=== PATIENT | male | born 1960 | race Caucasian/White ===

== ENCOUNTER 2021-08-18 10:41 | Day surgery (SDC) | payer OTHER ==
[~2021-08-18] VITALS: Ht 182.9 cm; Wt 89.7 kg
[~2021-08-18 10:41] MED LIST: ATORVASTATIN CA10 MG PO; Aspir 8181 MG PO; Cartia Xt180 MG PO
--- NOTE | 2021-08-18 11:44 | NUR ---
08/18/21 1144 GIORGIO VÁZQUEZ HIGH FIBER/DIVERTICULOSIS TO PT IN POSTOP PER .
== END 2021-08-18 12:27 | disposition home or self-care (01) ==
LOC: ORSCSDS 10:41
PROVIDERS: Internal Medicine Gastroenterology
PROC: 0DBM8ZX Excision of Descending Colon, Via Natural or Artificial Opening Endoscopic, Diagnostic (ICD-10-PCS; principal; 2021-08-18 12:00)
PROC: 0DBL8ZX Excision of Transverse Colon, Via Natural or Artificial Opening Endoscopic, Diagnostic (ICD-10-PCS; principal; 2021-08-18 12:00)
PROC: 0DBN8ZX Excision of Sigmoid Colon, Via Natural or Artificial Opening Endoscopic, Diagnostic (ICD-10-PCS; principal; 2021-08-18 12:00)
DX: Z12.11 Encounter for screening for malignant neoplasm of colon (principal); Z86.010 Personal history of colon polyps; D12.3 Benign neoplasm of transverse colon; D12.4 Benign neoplasm of descending colon; D12.5 Benign neoplasm of sigmoid colon; K57.30 Diverticulosis of large intestine without perforation or abscess without bleeding; K64.8 Other hemorrhoids; I10 Essential (primary) hypertension; I48.91 Unspecified atrial fibrillation; G47.33 Obstructive sleep apnea (adult) (pediatric); Z79.899 Other long term (current) drug therapy
CPT/HCPCS: 88305; J2704; J7120

== ENCOUNTER → 2022-06-08 | Outpatient (CLI) | payer OTHER ==
[2022-06-12 13:10] LABS: M-SPIKE, % 81.4 % (Not Observed); M-SPIKE, MG/24 HR 1289 mg/24 hr (Not Observed); PROTEIN,TOTAL,URINE 175.9 mg/dL (Not Estab.)
== END | disposition home or self-care (01) ==
LOC: LAB SHORT 10:49
PROVIDERS: Internal Medicine Hematology & Oncology
DX: C93.10 Chronic myelomonocytic leukemia not having achieved remission (principal); C90.00 Multiple myeloma not having achieved remission
CPT/HCPCS: 81050

== ENCOUNTER → 2022-07-26 | Outpatient (CLI) | payer OTHER | END | disposition home or self-care (01) | LOC: LAB SHORT 12:06 → LAB 12:06 | DX: D22.5 Melanocytic nevi of trunk (principal) | CPT/HCPCS: 88305 ==

== ENCOUNTER 2022-08-15 02:27 | Day surgery (SDC) | payer OTHER ==
[2022-08-15] MEDS ORDERED: DECADRON4 M1 PO (17:41)
[2022-08-15] MEDS ORDERED: VALS80 PO (17:41)
[2022-08-15] MEDS ORDERED: VITAMIN D31000 UNI1 PO (17:42)
[2022-08-15] MEDS ORDERED: METO100ER PO (17:42)
[2022-08-15] MEDS ORDERED: ACYC400 PO (17:43)
--- NOTE | 2022-08-15 17:45 | NUR ---
TRANSFUSION REACTION PLATLETS STARTED AT 1358. NO HISTORY OF ANY BLOOD PRODUCT TRANSFUSION. 1442: PT CALLED STAFF TO ROOM. C/O ITCHING, RASH, HIVE TO INNER LEFT LOWER LIP. PLATLETS STOPPED. VS: 97.8 - 16 - 71 - 127/105 1445: CALLED DR. TORRES'S OFFICE, SPOKE WITH ESHA Tavarez MA. NEW ORDERS RECEIVED FOR BENEDRYL. 1447: BENEDRYL 25 MG IV GIVEN X1 PT MONITORED. 1455: PT REPORTS SYMPTOMS RESOLVED. HIVE TO INNER LEFT LOWER LIP NEARLY GONE. RESTARTED PLATLET INFUSION. 1508: PT C/O ITCHING IN THROAT, COUGH, C/O "COLD" NO TEMP. PLATLETS STOPPED. 1510: BENEDRYL 25 MG IV X 1 GIVEN. 1517: PT REPORTS SYMPTOMS PERSISTING. VS: 98.0 - 16 - 84 - 120/88. 1520: CALL TO DR. TORRES'S OFFICE. SPOKE WITH Keysha NUNEZ. NEW ORDERS RECEIVED FOR IV SOLUMEDROL. 1527: PT REPORTS FEELING SOME RELIEF FROM THE BENEDRYL. SOLUMEDROL 125 MG IV GIVEN. 1540: PT REPORTS HE IS FEELING MUCH BETTER. TRANSFUSION REACTION REPORT STARTED. 1548: LABS DRAWN FROM [facility] FOR LAB TO RUN TESTING POST TRANSFUSION REACTION. 1552: VS: 98.2 - 16 - 79 - 114/81. PT REPORTS FEELING BETTER 1617: VS: 97.6 - 16 - 75 - 144/93. REPORTS HE FEELS FINE. TRANSFUSION REACTION EDUCATION GIVEN. PT REPORTS HE FEELS FINE TO DRIVE. AMB WITH STEADY GAIT TO BR. PT REPORTS HE HAS BENEDRYL AT HOME AND HIS WILL BE HOME AND CAN HELP MONITOR HIM. DISCUSSED WHEN TO CALL 911 IF REACTINO RETURNS. 1624: IV DC'D AND PT AMB WITH STEADY GAIT TO GO HOME.
== END 2022-08-15 16:24 | disposition home or self-care (01) ==
LOC: ATC 02:27 → LAB FUT 08-06 13:40 → EDSTATUS 08-06 13:40
DX: D69.6 Thrombocytopenia, unspecified (principal); C93.10 Chronic myelomonocytic leukemia not having achieved remission; C90.00 Multiple myeloma not having achieved remission; I48.0 Paroxysmal atrial fibrillation; Z87.891 Personal history of nicotine dependence
CPT/HCPCS: 36415; 36430; 86900; 86901; 96374; 96375; 96376; J1200; J2930; J7040; P9035

== ENCOUNTER 2023-02-07 16:49 | Inpatient (IN) | payer OTHER ==
[~2023-02-07] VITALS: Ht 180.3 cm; Wt 89.5 kg
[~2023-02-07 16:49] MED LIST changes: +ACYC400 PO; +DECADRON4 M1 PO; +METO100ER PO; +VALS80 PO; +VITAMIN D31000 UNI1 PO
[2023-02-07 17:39] LABS: Hematocrit 29.8 % (37.0-53.0); Hemoglobin 9.9 g/dL (13.5-17.5); Mean Corpuscular HGB 30.8 pg (26.0-34.0); Mean Corpuscular HGB Conc 33.2 g/dL (31.5-36.5); Mean Corpuscular Volume 93 fL (80-100); Mean Platelet Volume 10.5 fL (9.1-12.4); Platelet Count 527 K/mm3 (150-400); RDW Coefficient Variation 16.4 % (11.7-14.2); RDW Standard Deviation 54.9 fL (35.1-46.3); Red Blood Cell Count 3.21 M/mm3 (4.30-5.90); White Blood Cell Count 1.05 K/mm3 (4.00-11.30)
[2023-02-07 17:58] LABS: Source, Urine Clean Catch
[2023-02-07 18:03] LABS: Albumin, Blood 2.8 g/dL (3.4-5.0); Albumin/Globulin Ratio 0.8 (0.8-1.8); Bilirubin, Total 1.1 mg/dL (0.1-1.0); Bun/Creatinine Ratio 11.2 (12.0-20.0); Calcium, Blood 8.8 mg/dL (8.5-10.1); Creatinine, Blood 1.25 mg/dL (0.60-1.20); Globulin, Blood 3.6 g/dL (2.2-4.0); Total Protein, Blood 6.4 g/dL (6.4-8.2)
[2023-02-07 18:43] LABS: BASOPHILS PERCENT MAN 0 % (0-2); EOSINOPHILS ABSOLUTE MAN 0.01 K/mm3 (0.00-0.68); EOSINOPHILS PERCENT MAN 1 % (0-6); LYMPHOCYTES % ATYPICAL MANUAL 1 % (0-0); LYMPHOCYTES ABSOLUTE MAN 0.79 K/mm3 (0.84-5.20); LYMPHOCYTES PERCENT MAN 75 % (21-46); MONOCYTES ABSOLUTE MAN 0.03 K/mm3 (0.16-1.47); MONOCYTES PERCENT MAN 3 % (4-13); NEUTROPHILS ABSOLUTE MAN 0.21 K/mm3 (1.96-9.15); SEG NEUTROPHILS PERCENT MAN 20 % (41-73); TOTAL CELLS COUNTED 100
[2023-02-07 18:44] LABS: Appearance, Urine Clear (Clear); Bilirubin, Urine Neg (Neg); Blood, Urine Neg (Neg); Color, Urine Yellow (P-Yellow); Glucose Qualitative, Urine Neg (Neg); Ketones, Urine Neg (Neg); Leukocyte Esterase, Urine Neg (Neg); Nitrite, Urine Neg (Neg); Protein, Urine 2+ (Neg); Specific Gravity, Urine 1.015 (1.003-1.022); Urobilinogen, Urine NORM (Normal)
[2023-02-07 18:52] LABS: Bacteria Few /hpf; Mucus Light (0-Heavy); Red Blood Cells, Urine 0-2 /hpf (0-2); Squamous Epithelial Cells Rare /hpf (Few); White Blood Cells, Urine 0-2 /hpf (0-5)
[2023-02-07 20:39] LABS: Influenza A, PCR NEGATIVE (NEGATIVE); Influenza B, PCR NEGATIVE (NEGATIVE); Resp Syncytial Virus, PCR NEGATIVE (NEGATIVE); SARS-Cov-2 (COVID-19) PCR, MMC NEGATIVE (NEGATIVE)
[2023-02-08] MEDS ORDERED: INQOVI 35 MG-11 EACH PO (00:56)
[2023-02-08 01:06] VITALS: BP 127/84
[2023-02-08 03:55] VITALS: BP 130/80
[2023-02-08 04:19] LABS: Campylobacter Sp Not Detected (NOT DETECT)
[2023-02-08 04:20] LABS: Adenovirus F 40/41 Not Detected (NOT DETECT); Astrovirus Not Detected (NOT DETECT); Cryptosporidium Not Detected (NOT DETECT); Cyclospora Cayetanensis Not Detected (NOT DETECT); E. Coli O157 Not Detected (NOT DETECT); Entamoeba Histolytica Not Detected (NOT DETECT); Enteroaggregative E. coli-EAEC Not Detected (NOT DETECT); Enteropathogenic E. coli-EPEC Not Detected (NOT DETECT); Enterotoxigenic E. coli-ETEC Not Detected (NOT DETECT); Giardia Lamblia Not Detected (NOT DETECT); Norovirus GI/GII Not Detected (NOT DETECT); Plesiomonas Shigelloides Not Detected (NOT DETECT); Rotavirus A Not Detected (NOT DETECT); Salmonella Sp Not Detected (NOT DETECT); Sapovirus Not Detected (NOT DETECT); Shiga Toxin-prod E. coli-STEC Not Detected (NOT DETECT); Shigella/Enteroin E. coli-EIEC Not Detected (NOT DETECT); Vibrio Cholerae Not Detected (NOT DETECT); Vibrio Sp Not Detected (NOT DETECT); Yersinia Enterocolitica Not Detected (NOT DETECT)
[2023-02-08 04:49] LABS: Hematocrit 26.7 % (37.0-53.0); Hemoglobin 8.9 g/dL (13.5-17.5); Mean Corpuscular HGB 30.7 pg (26.0-34.0); Mean Corpuscular HGB Conc 33.3 g/dL (31.5-36.5); Mean Corpuscular Volume 92 fL (80-100); Mean Platelet Volume 10.3 fL (9.1-12.4); Platelet Count 445 K/mm3 (150-400); RDW Coefficient Variation 16.5 % (11.7-14.2); RDW Standard Deviation 55.4 fL (35.1-46.3)
[2023-02-08 05:09] LABS: Albumin, Blood 2.4 g/dL (3.4-5.0); Albumin/Globulin Ratio 0.7 (0.8-1.8); Bilirubin, Total 0.8 mg/dL (0.1-1.0); Bun/Creatinine Ratio 15.7 (12.0-20.0); Calcium, Blood 8.5 mg/dL (8.5-10.1); Creatinine, Blood 1.02 mg/dL (0.60-1.20); Globulin, Blood 3.3 g/dL (2.2-4.0); Potassium, Blood 3.7 mmol/L (3.5-5.5); Total Protein, Blood 5.7 g/dL (6.4-8.2)
[2023-02-08 05:17] LABS: White Blood Cell Count 0.51 K/mm3 (4.00-11.30)
[2023-02-08 05:30] LABS: BAND PERCENT MAN 4 % (0-8); BASOPHILS PERCENT MAN 0 % (0-2); EOSINOPHILS PERCENT MAN 0 % (0-6); LYMPHOCYTES ABSOLUTE MAN 0.28 K/mm3 (0.84-5.20); LYMPHOCYTES PERCENT MAN 56 % (21-46); METAMYELOCYTE ABSOLUTE MAN 0.02 K/mm3 (0.00-0.00); METAMYELOCYTE PERCENT MAN 4 % (0-0); MONOCYTES ABSOLUTE MAN 0.04 K/mm3 (0.16-1.47); MONOCYTES PERCENT MAN 8 % (4-13); NEUTROPHILS ABSOLUTE MAN 0.16 K/mm3 (1.96-9.15); SEG NEUTROPHILS PERCENT MAN 28 % (41-73); TOTAL CELLS COUNTED 25
--- NOTE | 2023-02-08 06:26 | NUR ---
NEW ADMIT/CHEMICAL ECONOMIST SUMMARY PT ADMIT F/NEUTROPENIC FEVER R/T MYELOMA DX. A/OX4. ABLE TO MAKE NEEDS KNOWN. INDPENDENT IN THE ROOM. SOON AFTER ARIVAL PT C/O CHILLS AND VISIBLE SHAKING. PT FEVER UP TO 103.1; GAVE TYLENOL AND APPLIED ICE PACK. CALL TO REHABILITATION INSPECTOR TO NOTIFY; NO NEW ORDERS. PT HAD TO LARGE LOOSE STOOLS. CRITICAL LAB; WBC 0.51; CALL TO DR. HINSON TO NOTIFY; NO NEW ORDERS. MONITORED PT CLOSELY T/O THE NIGHT; TEMP TRENDING DOWN; MOST RECENT 99.6. PT ORIENTED TO ROOM; CALL LIGHT ACCESSIBLE. PT ON NEUTROPENIC PRECAUTIONS.
[2023-02-08 07:03] VITALS: BP 118/78
--- NOTE | 2023-02-08 10:47 | NUR ---
AM ASSESSMENT I WAS PRESENT DURING AND AGREE WITH THE STUDENT NURSE GENNY'S AM SHIFT ASSESSMENT AND DOCUMENTATION ON THIS PATIENT
[2023-02-08 15:30] VITALS: BP 117/84
--- NOTE | 2023-02-08 17:50 | NUR ---
NANCY WAS RUNNING TEMPERATURES BETWEEN 98 - 103.2 THROUGHOUT THE SHIFT, TREATED WITH PRN TYLENOL. HE WAS A&O X 4, PLEASANT AND COOPERATIVE WITH CARE. WBC COUNT WAS 0.5 TODAY. PT STAYED IN BED MOST OF THE SHIFT, CLAIMS THAT HIS DIARRHEA HAS IMPROVED TODAY HAVING LESS FREQUENT TRIPS TO THE TOILET AND LESS CRAMPING. PT'S HAS BEEN AT BEDSIDE MOST OF THE DAY.
--- NOTE | 2023-02-08 18:12 | NUR ---
PT IS A/OX4, PLEASANT AND COOPERATIVE. PT IS UP IND IN THE ROOM. THE PT APPEARS TO BE BREATHING EASILY ON RA. PT DENIED ANY PAIN, SOB, N/V THIS SHIFT. THE PT WAS FEBRILE THIS AFTERNOON TEMP 103.2. PT WAS GIVEN TYLENOL AND COOLED DOWN WITH ICE PACKS. AT THIS TIME THE PT IS NOW AFBRILE. PTS WAS IN TO VISIT TODAY. CALL LIGHT IN REACH, WILL CONTINUE TO MONITOR AND ASSESS FOR CHANGES
[2023-02-08 20:37] VITALS: BP 122/83
--- NOTE | 2023-02-09 04:12 | NUR ---
PATIENT ADMIT FOR UNKNOWN INFECTION. WBC LEVEL CRITICAL LOW AT 0.51. TEMP SPIKED TO 102.9 ORAL. TYLENOL ADMINISTERED PER EMAR. TEMP DOWN TO 99.6 ORAL. IV PATENT IN RIGHT AC AND LEFT HAND. HX: DIARRHEA X10 DAYS. STATED IT SLOWED DOWN YESTERDAY 02/08/23, BUT STILL LIQUID STOOL. NO COMPLAINTS DURING THIS SHIFT. NEUTRAPENIC PRECAUTIONS AND DIET. ANTIBIOTICS AND LR ADMINISTERED. PATIENT STATED HE HAS HOME MED VALS[facility]IN IN HIS ROOM WHICH HE NEEDS TO TAKE, BUT HASN'T TAKEN YET SINCE ADMITTANCE. TRANSFERS INDEPENDENTLY. RECEIVED CHEMO FOR LEUKEMIA 3 WEEKS AGO.
[2023-02-09 05:23] LABS: BASOPHILS ABSOLUTE AUTO 0.03 K/mm3 (0.00-0.23); BASOPHILS PERCENT AUTO 2 % (0-2); Hematocrit 30.9 % (37.0-53.0); Mean Corpuscular HGB 30.2 pg (26.0-34.0); Mean Corpuscular HGB Conc 32.4 g/dL (31.5-36.5); Mean Corpuscular Volume 93 fL (80-100); Mean Platelet Volume 10.7 fL (9.1-12.4); Platelet Count 526 K/mm3 (150-400); RDW Coefficient Variation 16.9 % (11.7-14.2); RDW Standard Deviation 57.9 fL (35.1-46.3); Red Blood Cell Count 3.31 M/mm3 (4.30-5.90); White Blood Cell Count 1.37 K/mm3 (4.00-11.30)
[2023-02-09 05:28] LABS: EOSINOPHILS ABSOLUTE AUTO 0.02 K/mm3 (0.00-0.68); EOSINOPHILS PERCENT AUTO 2 % (0-6); IMMATURE GRAN PERCENT AUTO 0 % (0-1); LYMPHOCYTES ABSOLUTE AUTO 0.87 K/mm3 (0.84-5.20); LYMPHOCYTES PERCENT AUTO 64 % (21-46); MONOCYTES ABSOLUTE AUTO 0.06 K/mm3 (0.16-1.47); MONOCYTES PERCENT AUTO 4 % (4-13); NEUTROPHILS ABSOLUTE AUTO 0.39 K/mm3 (1.96-9.15); NEUTROPHILS PERCENT AUTO 28 % (41-73)
[2023-02-09 05:56] LABS: Bun/Creatinine Ratio 11.5 (12.0-20.0); Calcium, Blood 9.2 mg/dL (8.5-10.1); Creatinine, Blood 0.96 mg/dL (0.60-1.20); Potassium, Blood 3.4 mmol/L (3.5-5.5)
[2023-02-09 06:20] VITALS: BP 114/83
[2023-02-09 07:05] VITALS: BP 137/97
--- NOTE | 2023-02-09 08:14 | NUR ---
pt laying in bed awake a/ox3, pleasant and cooperative with care, follows commands well, denies pain at this time, lungs are clear t/o, resp even and unlabored, no cough noted, hrirr, has chronic afib, no edema noted, ppp+1, cap refill<3 sec, vs stable, afebrile, iv sites are clear and patent, btx4, abd flat soft nontender, voids without diff, skin c/w/d/, maew, marichuy, call light in reach.
[2023-02-09 15:09] VITALS: BP 117/90
--- NOTE | 2023-02-09 18:34 | NUR ---
pt doing well, states he had a brief sharp pain in abd this afternoon otherwise none, spouce in to see him, no acute changes this shift. call light in reach.
[2023-02-09 19:51] VITALS: BP 114/67
[2023-02-10 04:06] VITALS: BP 131/84
--- NOTE | 2023-02-10 05:49 | NUR ---
PATIENT IS ORIENTED, IND IN ROOM, CALLS TO MAKE NEED KNOW. HEADACHE AND L HIP PAIN TREATED PER NOV, LIKELY FORM LAST WEDNESDAYS BONE MARROW BIOPSY. BANDAGE TO SITE CDI. SOME HTN BUT OTHERWISE VSS. COLD SWEATS AT TIMES. IS INFUSING LR AND ANTIBIOTICS. PATIENT IS WONDERING ABOUT [facility] PRESCRIPTION AND IF IT IS STILL NEEDED. WILL INFORM DAY STAFF.
[2023-02-10 06:00] LABS: BASOPHILS ABSOLUTE AUTO 0.03 K/mm3 (0.00-0.23); BASOPHILS PERCENT AUTO 2 % (0-2); Hematocrit 26.1 % (37.0-53.0); Hemoglobin 8.6 g/dL (13.5-17.5); Mean Corpuscular HGB 30.3 pg (26.0-34.0); Mean Corpuscular Volume 92 fL (80-100); Platelet Count 498 K/mm3 (150-400); RDW Coefficient Variation 16.8 % (11.7-14.2); RDW Standard Deviation 55.8 fL (35.1-46.3); Red Blood Cell Count 2.84 M/mm3 (4.30-5.90); White Blood Cell Count 1.46 K/mm3 (4.00-11.30)
[2023-02-10 06:02] LABS: EOSINOPHILS ABSOLUTE AUTO 0.01 K/mm3 (0.00-0.68); EOSINOPHILS PERCENT AUTO 1 % (0-6); IMMATURE GRAN PERCENT AUTO 7 % (0-1); LYMPHOCYTES ABSOLUTE AUTO 0.55 K/mm3 (0.84-5.20); LYMPHOCYTES PERCENT AUTO 38 % (21-46); MONOCYTES ABSOLUTE AUTO 0.14 K/mm3 (0.16-1.47); MONOCYTES PERCENT AUTO 10 % (4-13); NEUTROPHILS ABSOLUTE AUTO 0.63 K/mm3 (1.96-9.15); NEUTROPHILS PERCENT AUTO 43 % (41-73)
[2023-02-10 06:20] LABS: Albumin, Blood 2.1 g/dL (3.4-5.0); Albumin/Globulin Ratio 0.6 (0.8-1.8); Bilirubin, Total 0.6 mg/dL (0.1-1.0); Bun/Creatinine Ratio 10.3 (12.0-20.0); Calcium, Blood 8.7 mg/dL (8.5-10.1); Creatinine, Blood 0.97 mg/dL (0.60-1.20); Globulin, Blood 3.3 g/dL (2.2-4.0); Potassium, Blood 3.3 mmol/L (3.5-5.5); Total Protein, Blood 5.4 g/dL (6.4-8.2)
[2023-02-10 07:14] VITALS: BP 104/88
--- NOTE | 2023-02-10 08:00 | NUR ---
pt sitting up in chair states doing well, slept ok last night, a/ox3, pleasant and cooperative with care, follows commands well, lungs are clear t/o, resp even and unlabored, no cough noted, hrirr, no edema noted, ppp+1, cap refill <3sec, vs stable, afebrile, iv sites are clear and patent, but on to left hand is a bit tender, will remove, btx4, abd flat soft nontender, voids without diff, skin c/w/d, maew, marichuy, call light in reach.
[2023-02-10] MEDS ORDERED: VISBIOME 112.51 EACH PO (10:54)
[2023-02-10] MEDS ORDERED: AMOCLA875 PO (10:55)
--- NOTE | 2023-02-10 11:48 | NUR ---
pt has been discharged to home, ivs removed intact, went over discharge instructions with him and spouce, they verbalize understanding, new medication faxed to his pharmacy, left with all belongings via wheelchair with deposition reporter in attendence.
== END 2023-02-10 12:00 | disposition home or self-care (01) | DRG 809 ==
LOC: ER 16:49 → MEDS 22:11 → ENPENDDIS 02-10 10:30 → MEDS 02-10 12:00
PROVIDERS: Internal Medicine; Physician Assistant; Student in an Organized Health Care Education/Training Program; ADMIT Student in an Organized Health Care Education/Training Program
DX: D70.9 Neutropenia, unspecified (principal); C90.00 Multiple myeloma not having achieved remission; C92.10 Chronic myeloid leukemia, BCR/ABL-positive, not having achieved remission; D84.9 Immunodeficiency, unspecified; K57.32 Diverticulitis of large intestine without perforation or abscess without bleeding; R50.81 Fever presenting with conditions classified elsewhere; E87.6 Hypokalemia; K52.9 Noninfective gastroenteritis and colitis, unspecified; Z20.822 Contact with and (suspected) exposure to COVID-19; Z87.891 Personal history of nicotine dependence; Z98.890 Other specified postprocedural states; Z90.49 Acquired absence of other specified parts of digestive tract; Z79.899 Other long term (current) drug therapy; Z79.02 Long term (current) use of antithrombotics/antiplatelets; Z79.2 Long term (current) use of antibiotics
CPT/HCPCS: 0241U; 36415; 71045; 74177; 80048; 80053; 81001; 83605; 83690; 83735; 85025; 87040; 87507; 96365-59; 99285-25; A9270; J0692; J1447; J1650; J1885; J2405; J7030; J7050; J7120; Q9967

== ENCOUNTER 2024-04-08 17:45 | Emergency (ER) | payer MEDICARE ==
[~2024-04-08] VITALS: Ht 177.8 cm; Wt 75.8 kg
[~2024-04-08 17:45] MED LIST changes: +AMOCLA875 PO; +INQOVI 35 MG-11 EACH PO; +VISBIOME 112.51 EACH PO
[2024-04-08] MEDS ORDERED: NS 1,000 ML IV SCH (17:55)
[2024-04-08 18:18] LABS: BASOPHILS ABSOLUTE AUTO 0.06 K/mm3 (0.00-0.23); BASOPHILS PERCENT AUTO 1 % (0-2); EOSINOPHILS ABSOLUTE AUTO 0.31 K/mm3 (0.00-0.68); EOSINOPHILS PERCENT AUTO 4 % (0-6); Hematocrit 35.9 % (37.0-53.0); Hemoglobin 12.1 g/dL (13.5-17.5); IMMATURE GRAN ABSOLUTE AUTO 0.09 K/mm3 (0.00-0.10); IMMATURE GRAN PERCENT AUTO 1 % (0-1); LYMPHOCYTES ABSOLUTE AUTO 1.36 K/mm3 (0.84-5.20); LYMPHOCYTES PERCENT AUTO 16 % (21-46); MONOCYTES ABSOLUTE AUTO 0.91 K/mm3 (0.16-1.47); MONOCYTES PERCENT AUTO 11 % (4-13); Mean Corpuscular HGB 34.1 pg (26.0-34.0); Mean Corpuscular HGB Conc 33.7 g/dL (31.5-36.5); Mean Corpuscular Volume 101 fL (80-100); Mean Platelet Volume 10.5 fL (9.1-12.4); NEUTROPHILS ABSOLUTE AUTO 5.68 K/mm3 (1.96-9.15); NEUTROPHILS PERCENT AUTO 68 % (41-73); Platelet Count 203 K/mm3 (150-400); RDW Coefficient Variation 14.5 % (11.7-14.2); RDW Standard Deviation 53.1 fL (35.1-46.3); Red Blood Cell Count 3.55 M/mm3 (4.30-5.90); White Blood Cell Count 8.41 K/mm3 (4.00-11.30)
[2024-04-08 18:42] LABS: Albumin, Blood 2.5 g/dL (3.4-5.0); Albumin/Globulin Ratio 0.7 (0.8-1.8); Bilirubin, Total 0.7 mg/dL (0.1-1.0); Bun/Creatinine Ratio 15.6 (12.0-20.0); Calcium, Blood 9.7 mg/dL (8.5-10.1); Creatinine, Blood 1.41 mg/dL (0.60-1.20); Globulin, Blood 3.7 g/dL (2.2-4.0); Potassium, Blood 4.1 mmol/L (3.5-5.5); Total Protein, Blood 6.2 g/dL (6.4-8.2)
[2024-04-08 19:36] VITALS: BP 127/90
== END 2024-04-08 19:36 | disposition home or self-care (01) ==
LOC: ER 17:45
PROVIDERS: Emergency Medicine
DX: T67.5XXA Heat exhaustion, unspecified, initial encounter (principal); E86.0 Dehydration; R53.1 Weakness; Z79.899 Other long term (current) drug therapy; Z87.891 Personal history of nicotine dependence
CPT/HCPCS: 80053; 82550; 84484; 85025; 93005; 93010; 96360; 99284-25; J7030

== ENCOUNTER 2024-07-30 13:07 | Day surgery (SDC) | payer MEDICARE ==
[~2024-07-30] VITALS: Ht 177.8 cm; Wt 74.8 kg
[~2024-07-30 13:07] MED LIST changes: +Atropine Sulfate 0.1 MG/ML 10ML SYR ONE; +CPAP; +ELIQUIS5 M2 PO; +Glycopyrrolate 0.2 MG/ML 1MLVIAL ONE; +Lactated Ringer's 1,000 ML IV ONE; +Lidocaine 2% 5 ML SDV ONE; +Lidocaine HCl/Pf 1% 5 ML VIAL ONE; +Methylene Blue 1% 100 MG/10 ML VIAL ONE; +Ondansetron HCl 2 MG / ML 2ML Vial ONE; +ePHEDrine Sulfate 50 MG/ML 1ML Injection ONE
[2024-07-30] MEDS ORDERED: propofoL 40 ML IV ONE (13:47)
[2024-07-30] MEDS ORDERED: Zovirax800 MG (13:58)
--- NOTE | 2024-07-30 14:28 | NUR ---
07/30/24 1428 Sarah Chase PT. DENIES ANY PAIN.
[2024-07-30 15:52] VITALS: BP 120/86
== END 2024-07-30 15:27 | disposition home or self-care (01) ==
LOC: ORSCSDS 13:07
PROVIDERS: Internal Medicine Gastroenterology
PROC: 0DBN8ZX Excision of Sigmoid Colon, Via Natural or Artificial Opening Endoscopic, Diagnostic (ICD-10-PCS; principal; 2024-07-30 14:15)
PROC: 0DBL8ZX Excision of Transverse Colon, Via Natural or Artificial Opening Endoscopic, Diagnostic (ICD-10-PCS; principal; 2024-07-30 14:15)
PROC: 0DBK8ZX Excision of Ascending Colon, Via Natural or Artificial Opening Endoscopic, Diagnostic (ICD-10-PCS; principal; 2024-07-30 14:15)
DX: Z12.11 Encounter for screening for malignant neoplasm of colon (principal); D12.2 Benign neoplasm of ascending colon; D12.5 Benign neoplasm of sigmoid colon; K63.5 Polyp of colon; K57.30 Diverticulosis of large intestine without perforation or abscess without bleeding; K64.4 Residual hemorrhoidal skin tags; K64.8 Other hemorrhoids; Z86.0101 Personal history of adenomatous and serrated colon polyps; R13.10 Dysphagia, unspecified; G47.33 Obstructive sleep apnea (adult) (pediatric); I48.19 Other persistent atrial fibrillation; E78.2 Mixed hyperlipidemia; C93 Monocytic leukemia; I10 Essential (primary) hypertension; Z79.01 Long term (current) use of anticoagulants; Z79.899 Other long term (current) drug therapy
CPT/HCPCS: 88305; J0461; J2003; J2405; J2704; J7120; Q9968

== ENCOUNTER → 2024-09-04 | Outpatient (CLI) | payer MEDICARE ==
[~2024-09-04] MED LIST changes: -Atropine Sulfate 0.1 MG/ML 10ML SYR ONE; -Glycopyrrolate 0.2 MG/ML 1MLVIAL ONE; -Lactated Ringer's 1,000 ML IV ONE; -Lidocaine 2% 5 ML SDV ONE; -Lidocaine HCl/Pf 1% 5 ML VIAL ONE; -Methylene Blue 1% 100 MG/10 ML VIAL ONE; -Ondansetron HCl 2 MG / ML 2ML Vial ONE; +Zovirax800 MG; -ePHEDrine Sulfate 50 MG/ML 1ML Injection ONE
[2024-09-04 09:44] LABS: BASOPHILS ABSOLUTE AUTO 0.08 K/mm3 (0.00-0.23); BASOPHILS PERCENT AUTO 1 % (0-2); EOSINOPHILS ABSOLUTE AUTO 0.16 K/mm3 (0.00-0.68); EOSINOPHILS PERCENT AUTO 2 % (0-6); Hematocrit 42.9 % (37.0-53.0); IMMATURE GRAN ABSOLUTE AUTO 0.03 K/mm3 (0.00-0.10); IMMATURE GRAN PERCENT AUTO 0 % (0-1); LYMPHOCYTES ABSOLUTE AUTO 1.25 K/mm3 (0.84-5.20); LYMPHOCYTES PERCENT AUTO 12 % (21-46); MONOCYTES ABSOLUTE AUTO 1.31 K/mm3 (0.16-1.47); MONOCYTES PERCENT AUTO 12 % (4-13); Mean Corpuscular HGB 34.6 pg (26.0-34.0); Mean Corpuscular Volume 99 fL (80-100); Mean Platelet Volume 10.2 fL (9.1-12.4); NEUTROPHILS ABSOLUTE AUTO 7.82 K/mm3 (1.96-9.15); NEUTROPHILS PERCENT AUTO 73 % (41-73); Platelet Count 208 K/mm3 (150-400); RDW Coefficient Variation 14.3 % (11.7-14.2); RDW Standard Deviation 52.4 fL (35.1-46.3); Red Blood Cell Count 4.34 M/mm3 (4.30-5.90); White Blood Cell Count 10.65 K/mm3 (4.00-11.30)
[2024-09-04 10:00] LABS: C-REACTIVE PROTEIN, EXT RANGE 8.7 mg/dL (0.000-0.300)
[2024-09-04 10:02] LABS: Albumin, Blood 2.9 g/dL (3.4-5.0); Albumin/Globulin Ratio 0.7 (0.8-1.8); Bilirubin, Total 1.5 mg/dL (0.1-1.0); Calcium, Blood 8.9 mg/dL (8.5-10.1); Creatinine, Blood 1.17 mg/dL (0.60-1.20); Globulin, Blood 4.2 g/dL (2.2-4.0); Potassium, Blood 4.4 mmol/L (3.5-5.5); Total Protein, Blood 7.1 g/dL (6.4-8.2)
== END | disposition home or self-care (01) ==
LOC: LAB SHORT 09:28 → LAB 09:28
PROVIDERS: Nurse Practitioner Family
DX: R10.84 Generalized abdominal pain (principal)
CPT/HCPCS: 80053; 83690; 85025; 86140